=== PATIENT | female | born 1965 | race African-American/Black ===

== ENCOUNTER 2021-04-05 21:56 | Emergency (ER) | payer OTHER | END 2021-04-05 23:03 | disposition left against medical advice (07) | LOC: ER 21:56 | DX: M54.9 Dorsalgia, unspecified (principal); E78.5 Hyperlipidemia, unspecified; Z53.21 Procedure and treatment not carried out due to patient leaving prior to being seen by health care provider; Z90.12 Acquired absence of left breast and nipple; Z91.041 Radiographic dye allergy status; Z91.018 Allergy to other foods; V49.9XXA Car occupant (driver) (passenger) injured in unspecified traffic accident, initial encounter; Y93.89 Activity, other specified; Y92.89 Other specified places as the place of occurrence of the external cause; Y99.8 Other external cause status ==